=== PATIENT | male | born 1955 | race Caucasian/White ===

== ENCOUNTER 2016-06-19 13:42 | Inpatient (IN) | payer OTHER ==
[2016-06-19] MEDS ORDERED: ACETAMINOPHEN 325 MG TAB PO PRN (15:05)
[2016-06-19] MEDS ORDERED: ONDANSETRON 4 MG/2 ML VIAL IVP PRN (15:05)
[2016-06-19] MEDS ORDERED: ONDANSETRON DISINTEGRATING 4 MG TAB PO PRN (15:05)
[2016-06-19 16:23] LABS: % IMMATURE GRANULYOCYTES 0.2 % (0.0-1.1); ABSOLUTE IMMATURE GRANULOCYTES 0.01 10^3/uL (0.00-0.10); ADD DIFF? NO; ADD MORPH? NO; ADD SCAN? NO; ATYPICAL LYMPHOCYTE FLAG 30 (0-99); FRAGMENT RBC FLAG 0 (0-99); HEMATOCRIT 39.2 % (40.0-51.0); HEMOGLOBIN 13.6 g/dL (13.7-17.5); LEFT SHIFT FLG 0 (0-99); LIPEMIA HEMOLYSIS FLAG 90 (0-99); MEAN CELL HEMOGLOBIN 30.6 pg (27.9-34.1); MEAN CELL HEMOGLOBIN CONCENTR. 34.7 g/dL (32.4-36.7); MEAN CELL VOLUME 88.1 fL (81.5-99.8); MEAN PLATELET VOLUME 9.1 fL (8.7-11.7); PLATELET CLUMPS FLAG 0 (0-99); PLATELET COUNT 186 10^3/uL (150-400); RED BLOOD CELL COUNT 4.45 10^6/uL (4.40-6.38); RED CELL DISTRIBUTION WIDTH 13.6 % (11.5-15.2)
[2016-06-19 16:37] LABS: ANION GAP 8 mEq/L (8-16); C-REACTIVE PROTEIN < 5.0 mg/L (<10.0); CALCIUM 9.1 mg/dL (8.5-10.4); CARBON DIOXIDE 22 mEq/l (22-31); CHLORIDE 107 mEq/L (97-110); CREATININE 1.2 mg/dL (0.7-1.3); GLOMERULAR FILTRATION RATE > 60; GLUCOSE 77 mg/dL (70-100); POTASSIUM 3.8 mEq/L (3.5-5.2); SODIUM 137 mEq/L (134-144)
[2016-06-19 16:47] LABS: CREATINE KINASE-MB FRACTION 1.02 ng/mL (0-3.19); TROPONIN I < 0.012 ng/mL (0-0.034)
[2016-06-19 18:55] LABS: SEDIMENTATION RATE 6 MM/HR (0-20)
--- NOTE | 2016-06-19 21:03 | ECHO ---
[id number] + + [address] : : [place] [address] : : [phone] + + Adult Echocardiographic Report + ----+ :Name: DANISH MONTIELrivera Date: 06/19/2016 04:03 PM : : Hospital Admission Number: [id number] Location: 222: :: 1955 Gender: Male : :Age: 60 yrs Race: WH : :Reason For Study: Unstable angina/R/O WMA/pericardial : :effusion/Eval AVR : + ----+ MMode/2D Measurements \T\ Calculations IVSd: 0.65 cm LVIDd: 4.9 cm FS: 32.5 % Ao root diam: LVPWd: 0.80 cm LVIDs: 3.3 cm EDV(Teich): 4.2 cm 110.7 ml LA dimension: ESV(Teich): 4.1 cm 43.5 ml EF(Teich): 60.7 % LVLd ap4: 8.4 cm SV(MOD-sp4): EDV(MOD-sp4): 46.0 ml 74.0 ml LVLs ap4: 7.1 cm ESV(MOD-sp4): 28.0 ml EF(MOD-sp4): 62.2 % Normal Measurement Values: + + :LVIDd (3.5-5.7cm) IVSd (0.6-1.1cm) LVPWd (0.6-1.1cm) Aortic Root (2.0-3.7cm)Left Atrium (1.5-4.0cm): :LV Vol(d) (76-115ml) LV Vol(s) (29-48ml) Ejec Fraction (50-65%)PV Rui (0.6- 1.2m/s) TV Rui (0.4-1.0m/s) : :MV E Rui (0.8-1.0m/s)MV A Rui (0.3-1.0m/s)LVOT Rui (0.7-1.2m/s) Asc Ao Rui ( 0.9-1.8m/s) : + + Doppler Measurements \T\ Calculations MV E max rui: 117.5 cm/sec Ao mean P.1 mmHg MV A max rui: 56.8 cm/sec Ao V2 mean: 142.1 cm/sec MV E/A: 2.1 Ao V2 VTI: 47.5 cm Left Ventricle The left ventricle is normal in size. There is normal left ventricular wall thickness. Left ventricular systolic function is normal. Ejection Fraction = 60-65%. No regional wall motion abnormalities noted. Right Ventricle The right ventricle is normal in size and function. Atria The left atrial size is normal. Right atrial size is normal. The interatrial septum is intact with no evidence for an atrial septal defect. Mitral Valve The mitral valve is normal in structure and function. There is no evidence of mitral valve prolapse. There is no mitral valve stenosis. There is mild to moderate mitral regurgitation. Tricuspid Valve Normal tricuspid valve. There is trace tricuspid regurgitation. Aortic Valve There is no aortic insufficiency. There is a bioprosthetic aortic valve. The gradient is normal for this prosthetic aortic valve. AV mean gradient is 9mmHG. Pulmonic Valve The pulmonic valve is normal in structure and function. Mild pulmonic valvular regurgitation. Great Vessels The aortic root is normal size. Mildly dilated ascending aorta. Pericardium/Pleural There is no pericardial effusion. There is no pleural effusion. Conclusion A complete two-dimensional transthoracic echocardiogram was performed (2D, M-mode, Doppler and color flow Doppler). Compared to the echo of 02/20/16, the amount of MR has increased. Left ventricular systolic function is normal. Ejection Fraction = 60-65%. There is mild to moderate mitral regurgitation. There is trace tricuspid regurgitation. There is a bioprosthetic aortic valve. The gradient is normal for this prosthetic aortic valve. AV mean gradient is 9mmHG. Mild pulmonic valvular regurgitation. There is no pericardial effusion. Mildly dilated ascending aorta. There is no pleural effusion. Final Reading Physician: Alejandro Wallis electronically signed on 06/19/2016 09:01 PM Ordering Physician: Arnoldo Maguire Performed By: Sonya Sherman, [facility]
--- NOTE | 2016-06-19 21:24 | PDCARPN ---
Cardiology Progress Note Chief Complaint: Mr. Cordero is curently pain free. Troponin is normal. Echo demonstrates normal LVEF 60-65%, no wma. No pericardial effusion. Bioprosthetic aortic valve function is normal with normal gradient. Assessment/Plan: Assessment: 1. New onset chest pain 2. Hx of 3 vessel CABG 3. Hx of ostial RCA stent fracture 4. Hx of post op pericardial effusion and cardiac tamponade Plan: 1. NPO after midnight 2. LHC tomorrow morning. 06/19/16 21:22 Objective: Vital Signs (8 Hrs) Temp Pulse Resp BP Pulse Ox 06/19/16 20:00 36.4 C 50 L 19 121/72 H 97 06/19/16 14:45 36.5 C 73 16 127/83 H 98 Intake/Output (24 Hrs) 06/18/16 06/19/16 06/20/16 05:59 05:59 05:59 Intake Total 0 Balance 0 Intake: Oral (ml) 0 Other: Weight 95.5 kg Number of Voids Toilet 1 Result Diagrams: 06/19/16 16:00 06/19/16 16:00 Cardiac Labs: Cardiac Lab Results (72 Hrs) 06/19/16 16:00 CK-MB (CK-2) Fraction 1.02 Troponin I < 0.012 - Physical Exam Constitutional: WDWN, no apparent distress Cardiovascular: regular rate and rhythm, no murmurs, no rubs, no gallops Respiratory: clear to auscultate bilat Gastrointestinal: normoactive bowel sounds Skin: no rashes Musculoskeletal: no muscular tenderness Neurologic: AAOx3, CN II-XII grossly intact Psychiatric: cooperative, interactive ICD10 Worksheet Patient Problems: Problems Problem Status Onset Hepatitis Acute History of open heart surgery Acute Influenza A Acute Pericardial effusion without cardiac tamponade Acute Pneumonia Acute Postpericardiotomy syndrome Acute S/P AVR Acute S/P CABG x 3 Acute S/P pericardial surgery Acute 01/24/16 Syncope Acute Coronary artery disease Chronic Fatty liver Chronic Hyperlipidemia Chronic Obesity (BMI 30.0-34.9) Chronic
[2016-06-19] MEDS: ASPIRIN 81 MG CHEWABLE TAB PO SCH (22:27)
[2016-06-19] MEDS: COLCHICINE 0.6 MG CAP/TAB PO SCH (22:27)
[2016-06-19] MEDS ORDERED: ROSUVASTATIN CALCIUM 20 MG TAB PO SCH (22:30)
[2016-06-20] MEDS ORDERED: diphenhydrAMINE 25 MG CAP PO ONE ×2 (07:00→10:01)
[2016-06-20] MEDS ORDERED: DIAZEPAM 5 MG TAB PO ONE (07:00)
[2016-06-20] MEDS ORDERED: TEMAZEPAM 15 MG CAP PO PRN (07:00)
[2016-06-20] MEDS ORDERED: ACETAMINOPHEN 325 MG TAB PO PRN (07:00)
[2016-06-20] MEDS ORDERED: NITROGLYCERIN 0.4 MG BTL SL PRN (07:00)
[2016-06-20] MEDS ORDERED: ASPIRIN EC 325 MG TAB PO ONE ×2 (07:00→10:01)
[2016-06-20 07:22] LABS: CHOLESTEROL 129 mg/dL (140-220); CHOLESTEROL/HDL RATIO 3.23 RATIO (1.00-4.97); HIGH DENSITY LIPOPROTEIN 40 mg/dL (40-65); LDL/HDL RATIO 1.38 RATIO (1.00-3.64); LOW DENSITY LIPOPROTEIN 55 mg/dL (80-100); NON-HIGH DENSITY LIPOPROTEIN 89 mg/dL (90-129); TRIGLYCERIDE 173 mg/dL (40-150); VERY LOW DENSITY LIPOPROTEINS 34 mg/dL (8-25)
--- NOTE | 2016-06-20 08:38 | SOAPPROG ---
[facility] Progress Note Assessment/Plan: Assessment: Cardiology ([place]) 1. Admit with progressive worsening of exertional chest discomfort radiating to right shoulder. 2. Known CAD with multiple RCA stenting procedures, RCA stent fracture and subsequent CABG x 3. 3. Bicuspid aortic valve s/p bioprosthetic AVR. Valve is functioning normally with normal gradients. 4. History of post-operative pericardial effusion s/p pericardial window. No recurrence. 5. Hyperlipidemia that is well-controlled. Plan: 1. Keep NPO. 2. [facility] scheduled for [address] Humphrey. Subjective: Continues to have chest discomfort exacerbating with casual walking. He has no further questions about his procedure today. Objective: Vital Signs Temp Pulse Resp BP Pulse Ox 36.6 C 66 18 106/64 94 06/20/16 04:00 06/20/16 04:00 06/20/16 04:00 06/20/16 04:00 06/20/16 04:00 Laboratory Results 06/19/16 16:00 06/19/16 16:00 06/19/16 06/20/16 06/21/16 05:59 05:59 05:59 Intake Total 200 Balance 200 - Time Spent With Patient Time Spent With Patient: 25 minutes spent coordinating care, physical exam and documentation. Physical Exam - Physical Exam General Appearance: WD/WN, alert, no apparent distress Respiratory: chest non-tender, lungs clear, normal breath sounds Cardiac/Chest: normal peripheral pulses, regular rate, rhythm Peripheral Pulses: 2+: dorsalis-pedis (R), dorsalis-pedis (L) Abdomen: normal bowel sounds, non-tender, soft Neuro/Psych: no motor/sensory deficits, alert, normal mood/affect, oriented x 3 ICD10 Worksheet Patient Problems: Problems Problem Status Onset Hepatitis Acute History of open heart surgery Acute Influenza A Acute Pericardial effusion without cardiac tamponade Acute Pneumonia Acute Postpericardiotomy syndrome Acute S/P AVR Acute S/P CABG x 3 Acute S/P pericardial surgery Acute 01/24/16 Syncope Acute Coronary artery disease Chronic Fatty liver Chronic Hyperlipidemia Chronic Obesity (BMI 30.0-34.9) Chronic
--- NOTE | 2016-06-20 08:57 | CPEKG ---
Heart Rate: 65 RR Interval: 923 P-R Interval: 188 QRSD Interval: 76 QT Interval: 428 QTC Interval: 445 P [place]: 57 QRS [place]: 11 T Wave [place]: 49 EKG Severity - NORMAL ECG - EKG Impression: SINUS RHYTHM Electronically Signed By: Pedro Laureano 21-Jun-2016 13:00:24
[2016-06-20] MEDS: ASPIRIN 81 MG CHEWABLE TAB PO SCH (09:45)
[2016-06-20] MEDS: COLCHICINE 0.6 MG CAP/TAB PO SCH (09:45)
[2016-06-20] MEDS ORDERED: FAMOTIDINE 20 MG TAB ONE (10:01)
[2016-06-20] MEDS ORDERED: DIAZEPAM 5 MG TAB ONE (10:01)
[2016-06-20] MEDS ORDERED: LIDOCAINE 1% 30 ML SDV ONE (12:40)
[2016-06-20] MEDS ORDERED: fentaNYL 100 MCG/2 ML INJ ONE ×2 (12:40→14:23)
[2016-06-20] MEDS ORDERED: IOPAMIDOL (ISOVUE 370) 100 ML BTL IV ONE ×2 (12:41→14:33)
[2016-06-20] MEDS ORDERED: MIDAZOLAM 2 MG/2 ML VIAL ONE ×2 (12:41→14:23)
[2016-06-20 16:56] VITALS: TEMP 97.5
--- NOTE | 2016-06-20 17:33 | PDDXCAT ---
Diagnostic Cath Note - . Date: 06/20/16 Drive Thru Order Taker: Kam Indication: other (CAD; h/o PCI; h/o CABG; recurrent chest pain) - Procedure Access: right groin Procedure: left heart catheterization, coronary angiography, left ventriculogram , vein graft injection, MARTELL injection - Materials Left Heart Cath size: 6F Left Heart Cath materials: standard multipack (JL4, JR4, pigtail), other ( Multipurpose A-1 and Right Coronary Bypass catheter) - Findings-Left Heart Catheterization LM: Normal. LAD: Mild irregularities proximal and mid-vessel. LCX: Mild irregularities. RCA: Stents present from ostium to mid-RCA and and in distal RCA at the crux. Diffuse disease in mid-RCA up to 70%. rSVG: SVG to PDA patent. Retrogradely fills the proximal RCA and the distal RCA including posterolateral branch. SVG to posterolateral branch atretic with reduced flow. MARTELL: MARTELL to LAD patent. LVEF: 60% Wall motion: Normal Complications: Nonr Estimated blood loss: <50ml Closure method: Angioseal Assessment: 1) Normal left ventricular systolic function 2) [place] vessel CAD as described above. 3) Patent MARTELL to LAD. 4) Patent SVG to PDA. 5) Atretic SVG to posterolateral branch. No clear source for recent symptoms identified. The posterolateral branch appears to be adequately supplied via retrograde flow from the grafted PDA as well as from the [place] RCA. Plan: Start anti-anginal therapy with [id number] mg BID; consider adding Ranexa if symptoms persist. Patient Problems: Problems Problem Status Onset Hepatitis Acute History of open heart surgery Acute Influenza A Acute Pericardial effusion without cardiac tamponade Acute Pneumonia Acute Postpericardiotomy syndrome Acute S/P AVR Acute S/P CABG x 3 Acute S/P pericardial surgery Acute 01/24/16 Syncope Acute Coronary artery disease Chronic Fatty liver Chronic Hyperlipidemia Chronic Obesity (BMI 30.0-34.9) Chronic
[2016-06-20 18:03] VITALS: RESP 18
--- NOTE | 2016-06-20 18:31 | GDS ---
[f rep st] DISCHARGE SUMMARY HOSPITAL COURSE: Please refer to Dr. Wallis's admission note. Briefly, the patient is a 60-year-old male with a history of coronary disease. He has a history of prior PCI procedures involving the pro ximal and distal RCA. At one point, this included a fractured proximal RCA stent with approximately 5 mm of the stent bent at an almost 90-degree angle and protruding proximally into the aorta. That was based on a catheterization procedure performed late last year. In addition, the patient had ao rtic valve disease and abnormal fractional flow reserve in the left anterior descending. In of last year he underwent open-heart surgery which consisted of bioprosthetic aortic valve replace ment, a MARTELL to LAD graft, and separate saphenous vein grafts to the posterior descending branch and posterolateral branch of the RCA. The patient had issues postoperatively including pericardial eff usion with tamponade necessitating a pericardial window. Ultimately, the patient recovered from his procedure and was doing well. However, over the past week or so he began to have recurrent dyspnea on exertion and chest discomfort that was concerning to him. He was evaluated at [facility] by Dr. Hudson Wallis and was sent to the hospital for admission with a plan [facility]. The patient had no ischemic changes on ECG and his troponin was negative. To day, I performed a cardiac catheterization demonstrating normal left ventricular systolic function. His LAD had only mild disease. The left internal mammary graft to the LAD was patent. His circumf emily had no significant disease. The RCA had stents visible in its ostial/proximal portion and in th e distal RCA at the crux. Angiography revealed at least a 50%-60% ostial stenosis. There was a seg ment of disease in the mid RCA up to 70%. The distal RCA stents were generally patent. The sapheno us vein graft to the posterior descending branch was widely patent and provided retrograde filling o f both the proximal portion of the [place] RCA as well as distally into the posterolateral branch. T he saphenous vein graft to the posterolateral branch was atretic with significantly reduced flow. B ased on review of the films, there was no obvious culprit for his recurrent symptoms. The posterior descending branch and posterolateral branch had been separately grafted because of concern over pot ential stenosis within the distal RCA stents. However, on injections of both the [place] RCA and the grafted PDA, there did not appear to be a high-grade stenosis involving the stented segment of the distal RCA and the origin of the PDA which could potentially compromise retrograde flow to the poste rolateral branch. I had a phone discussion with Dr. Wallis. The decision was made to start antiangin al therapy in the form of low-dose metoprolol. The patient already has moderate bradycardia and the refore will be started on metoprolol tartrate 12.5 mg twice daily. RECOMMENDATIONS AND DISPOSITION: The patient is discharged in stable condition. He will continue h is aspirin, Crestor, and fenofibrate. Metoprolol will be added as described above. He has followup with Dr. Wallis on July 01. DISCHARGE DIAGNOSES: 1. Coronary artery disease. 2. History of prior PCIs. 3. History of prior CABG. 4. Recurrent chest discomfort. /[id number]/MODL
[2016-06-20 19:16] VITALS: BP 118/80; PULSE 65; O2SAT 97
[2016-06-20] MEDS ORDERED: METOPROLOL TARTRATE 25 MG TAB PO SCH (21:00)
[2016-06-20] MEDS ORDERED: FENOFIBRATE 48 MG TAB PO SCH (21:00)
== END 2016-06-20 19:44 | disposition home or self-care (01) | DRG 204 ==
LOC: F2W 14:27
PROVIDERS: ADMIT Internal Medicine Cardiovascular Disease; ATTEND Internal Medicine Cardiovascular Disease
PROC: 4A023N7 Measurement of Cardiac Sampling and Pressure, Left Heart, Percutaneous Approach (ICD-10-PCS; principal; 2016-06-20)
PROC: B2151ZZ Fluoroscopy of Left Heart using Low Osmolar Contrast (ICD-10-PCS; principal; 2016-06-20)
PROC: B2111ZZ Fluoroscopy of Multiple Coronary Arteries using Low Osmolar Contrast (ICD-10-PCS; principal; 2016-06-20)
PROC: B2131ZZ Fluoroscopy of Multiple Coronary Artery Bypass Grafts using Low Osmolar Contrast (ICD-10-PCS; principal; 2016-06-20)
PROC: B2181ZZ Fluoroscopy of Left Internal Mammary Bypass Graft using Low Osmolar Contrast (ICD-10-PCS; principal; 2016-06-20)
DX: R06.02 Shortness of breath (principal); R07.9 Chest pain, unspecified; I25.10 Atherosclerotic heart disease of native coronary artery without angina pectoris; E78.5 Hyperlipidemia, unspecified; Z95.5 Presence of coronary angioplasty implant and graft; Z95.1 Presence of aortocoronary bypass graft; Z95.2 Presence of prosthetic heart valve
CPT/HCPCS: C1760; C1769; J1644; J2250; J3010; Q9967

== ENCOUNTER 2016-11-12 14:54 | Observation (INO) | payer OTHER ==
--- NOTE | 2016-11-12 15:04 | CPEKG ---
Heart Rate: 47 RR Interval: 1277 P-R Interval: 184 QRSD Interval: 86 QT Interval: 476 QTC Interval: 421 P [place]: 39 QRS [place]: -8 T Wave [place]: 34 EKG Severity - OTHERWISE NORMAL ECG - EKG Impression: SINUS BRADYCARDIA Electronically Signed By: Oswald Reid 12-Nov-2016 15:10:43
[2016-11-12 15:22] LABS: % IMMATURE GRANULYOCYTES 0.2 % (0.0-1.1); ABSOLUTE IMMATURE GRANULOCYTES 0.01 10^3/uL (0.00-0.10); ADD DIFF? NO; ADD MORPH? NO; ADD SCAN? NO; ATYPICAL LYMPHOCYTE FLAG 10 (0-99); FRAGMENT RBC FLAG 0 (0-99); HEMATOCRIT 41.4 % (40.0-51.0); HEMOGLOBIN 14.3 g/dL (13.7-17.5); LEFT SHIFT FLG 0 (0-99); LIPEMIA HEMOLYSIS FLAG 90 (0-99); MEAN CELL HEMOGLOBIN 31.6 pg (27.9-34.1); MEAN CELL HEMOGLOBIN CONCENTR. 34.5 g/dL (32.4-36.7); MEAN CELL VOLUME 91.4 fL (81.5-99.8); MEAN PLATELET VOLUME 9.2 fL (8.7-11.7); PLATELET CLUMPS FLAG 0 (0-99); PLATELET COUNT 165 10^3/uL (150-400); RED BLOOD CELL COUNT 4.53 10^6/uL (4.40-6.38); RED CELL DISTRIBUTION WIDTH 12.7 % (11.5-15.2)
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
[2016-11-12 15:32] LABS: INR 1.04 (0.83-1.16); PROTIME(PATIENT) 13.5 SEC (12.0-15.0)
[2016-11-12 15:33] LABS: APTT 26.5 SEC (23.0-38.0)
[2016-11-12 15:41] LABS: CARBON DIOXIDE 23 mEq/l (22-31); CHLORIDE 104 mEq/L (97-110); POTASSIUM 4.2 mEq/L (3.5-5.2); SODIUM 139 mEq/L (134-144)
[2016-11-12 15:42] LABS: ALANINE AMINOTRANSFERASE 38 IU/L (21-72); ALBUMIN 4.3 g/dL (3.5-5.0); ALKALINE PHOSPHATASE 56 IU/L (38-126); ANION GAP 12 mEq/L (8-16); ASPARTATE AMINOTRANSFERASE 32 IU/L (17-59); BILIRUBIN,TOTAL 0.8 mg/dL (0.1-1.4); BILIRUBIN-CONJUGATED 0.2 mg/dL (0.0-0.5); BILIRUBIN-UNCONJUGATED 0.6 mg/dL (0.0-1.1); CALCIUM 9.4 mg/dL (8.5-10.4); CREATININE 1.4 mg/dL (0.7-1.3); GLOMERULAR FILTRATION RATE 51; GLUCOSE 82 mg/dL (70-100); TOTAL PROTEIN 7.4 g/dL (6.3-8.2)
[2016-11-12 15:50] LABS: TROPONIN I < 0.012 ng/mL (0.000-0.034)
[2016-11-12] MEDS ORDERED: ACETAMINOPHEN 325 MG TAB PO PRN (17:58)
[2016-11-12] MEDS ORDERED: ONDANSETRON DISINTEGRATING 4 MG TAB PO PRN (17:58)
[2016-11-12] MEDS ORDERED: ONDANSETRON 4 MG/2 ML VIAL IVP PRN (17:58)
[2016-11-12] MEDS ORDERED: NS 1,000 ML IV SCH (18:00)
[2016-11-12] MEDS ORDERED: IOPAMIDOL (ISOVUE 370) 100 ML BTL IV ONE (18:40)
--- NOTE | 2016-11-12 19:13 | GHP ---
[f rep st] HISTORY AND PHYSICAL DATE OF ADMISSION: 11/12/2016 The patient is a pleasant 61-year-old gentleman, with a history of coronary artery disease, 3-vessel CABG in January 2016, and he had some right coronary artery stents prior to that. His postoperati ve course was complicated by an admission for pericardial effusion, heart failure symptoms, and a cabrera bsequent admission for influenza. The patient has had a chest pain syndrome that has gone on for a number months, really starting in a bout May or June. He was admitted here in June, and he had an angiogram at that time that showe d no flow limiting stenosis and patent grafts, other than an atretic SVG to posterolateral branch. His [place] coronary vessels showed a mid RCA lesion about 70%. He had a stress test last week that showed [address] depressions during exercise that resolved with rest. His chest pain is somewhat constant in nature and may be pleuritic. He has not had cough or sputum. He has no family history or personal history of VTE. He has not had fever or chills or breathing complications. He has not had trauma to his chest. He is somewhat active. He does not feel any kn ocking in his chest or instability. He has had no trauma. He takes an aspirin, but has no melena o r bright red blood per rectum, and no GI upset symptoms. He drinks minimal alcohol. Does not smoke cigarettes. He used to chew tobacco but he has quit. REVIEW OF SYSTEMS: A complete 10-point review of systems conducted, and negative except as noted in the HPI. PAST MEDICAL HISTORY: 1. Coronary artery disease. 2. History of influenza. 3. Chest pain syndrome. 4. Hyperlipidemia. 5. In the past, obesity. He is pretty thin when I see him. He has also had aortic valve replacement with a bovine pericardial prosthesis. ALLERGIES: Levofloxacin. HOME MEDICATIONS: Amlodipine 5, aspirin 325, fenofibrate, metoprolol and rosuvastatin. SOCIAL HISTORY: He works for the [employer]. He used to use tobacco. Drinks minimal alcohol. FAMILY HISTORY: Reviewed and unremarkable. Negative for VTE. PHYSICAL EXAMINATION: VITAL SIGNS: Temp 37.5, blood pressure 118/71, pulse 50, breathing 18 times a minute, 98% on room air. GENERAL: No acute distress. Sclerae anicteric. Oropharynx clear. Muc ous membranes are moist. NECK: Supple without lymphadenopathy or JVD. LUNGS: Clear to auscultati on bilaterally. HEART: S1, S2 with systolic murmur heard best at the left upper sternal border. A BDOMEN: Soft, nontender, nondistended. LOWER EXTREMITIES: Without edema. Calves are nontender. SKIN: Without rash. NEUROLOGIC: Nonfocal. LABORATORY: CBC normal. Coags normal. D-dimer 0.038. Sodium 139, potassium 4.2, chloride 104, bi carb 23, BUN 24, creatinine 1.4. This is greater than his baseline of about 1. LFTs normal. BNP is elevated at 397. Troponin is less than 0.012. Lipase 111. Chest x-ray, interpreted by me, shows no acute cardiopulmonary disease. EKG, interpreted by me, shows sinus rhythm at 47, with normal axis and intervals. No ST or T-wave c hanges. I have discussed the case with Dr. Alejandro Wallis. ASSESSMENT AND PLAN: A 61-year-old gentleman with post coronary artery bypass grafting chest pain s yndrome. 1. Post coronary artery bypass grafting chest pain syndrome. This may be musculoskeletal, may be s ternal as it was reproducible on exam. I think he needs to be ruled out for pulmonary embolism, so I have ordered a CT angiogram. Will cycle his troponins. Cardiology will see him in the morning. I have not reordered echo, because I think this is not consistent with a pericardial effusion or oth er such symptoms. 2. Elevated creatinine. He is clinically dry. Will give him a liter of fluids. 3. Prophylaxis. Pharmacologic prophylaxis indicated if in the hospital longer than [address] arted him on sequential compression devices for now. 4. Disposition. Observation status. /[id number]/MODL
[2016-11-12] MEDS ORDERED: ROSUVASTATIN CALCIUM 20 MG TAB PO SCH (21:00)
[2016-11-12] MEDS ORDERED: FENOFIBRATE 48 MG TAB PO SCH (21:00)
[2016-11-12] MEDS: METOPROLOL TARTRATE 25 MG TAB PO SCH (21:13)
[2016-11-13 04:55] LABS: ANION GAP 9 mEq/L (8-16); CALCIUM 8.6 mg/dL (8.5-10.4); CARBON DIOXIDE 24 mEq/l (22-31); CHLORIDE 106 mEq/L (97-110); CREATININE 1.4 mg/dL (0.7-1.3); GLOMERULAR FILTRATION RATE 51; GLUCOSE 74 mg/dL (70-100); POTASSIUM 4.3 mEq/L (3.5-5.2); SODIUM 139 mEq/L (134-144)
[2016-11-13 05:53] VITALS: TEMP 98.1
[2016-11-13 07:52] VITALS: BP 107/68; PULSE 58; RESP 15; O2SAT 94
[2016-11-13] MEDS: METOPROLOL TARTRATE 25 MG TAB PO SCH (08:39)
[2016-11-13] MEDS ORDERED: amLODIPine BESYLATE 5 MG TAB PO SCH (09:00)
[2016-11-13] MEDS ORDERED: ASPIRIN 325 MG TAB PO SCH (09:00)
--- NOTE | 2016-11-13 09:16 | CPEKG ---
Heart Rate: 59 RR Interval: 1017 P-R Interval: 188 QRSD Interval: 88 QT Interval: 432 QTC Interval: 428 P [place]: 71 QRS [place]: 21 T Wave [place]: 65 EKG Severity - NORMAL ECG - EKG Impression: SINUS RHYTHM EKG Impression: COMPARED WITH 12 NOV 2016, HR FASTER, AXIS HAS SHIFTED SLIGHTLY Electronically Signed By: Shannan Fierro 13-Nov-2016 19:33:52
--- NOTE | 2016-11-13 11:44 | PDCARPN ---
Cardiology Progress Note Chief Complaint: Pt admitted with chest pain. Troponin neg x 3. D Dimer normal. CT of chest without PE or aortic dissection. Tele demonstrates NSR with brief, asymptomatic run of SVT at approx 120 bpm. He is feeling well this am. No complaints. Chest pain to palpitation to lower left side of midline incision. Note hypotension today with SBP in the 90's. Assessment/Plan: Assessment: 1. Chest pain 2. Pleuritic chest pain 3. Hx of CAD sp CABG Plan: 1. Discontinue Amlodipine 2. Arrange for Zio patch, My office will call and make arrangements this week 3. No other change in medications 4. Follow up after Zio patch 11/13/16 11:43 11/13/16 12:41 Reviewed/Discussed With: hospitalist Objective: Vital Signs (8 Hrs) Temp Pulse Resp BP Pulse Ox 11/13/16 07:51 36.7 C 58 L 15 107/68 94 11/13/16 04:00 36.7 C 57 L 13 96/54 L 92 Intake/Output (24 Hrs) 11/12/16 11/13/16 11/14/16 05:59 05:59 05:59 Intake Total 1318 Balance 1318 Intake: Oral (ml) 320 IV Infused (ml) 998 Ns 1,000 ml @ 125 mls/hr 998 IV CONT YESSY Rx#: [id number] Other: Weight 101.605 kg Intake Quantity Yes Sufficient Output Comment Urinal no void since arriving Result Diagrams: 11/12/16 Unknown 11/13/16 03:32 Cardiac Labs: Cardiac Lab Results (72 Hrs) 11/13/16 11/12/16 11/12/16 03:36 Unknown 21:13 Troponin I < 0.012 < 0.012 < 0.012 ICD10 Worksheet Patient Problems: Problems Problem Status Onset CAD (coronary artery disease) Acute Chest pain Acute Hepatitis Acute History of open heart surgery Acute Influenza A Acute Pericardial effusion without cardiac tamponade Acute Pneumonia Acute Postpericardiotomy syndrome Acute S/P AVR Acute S/P CABG x 3 Acute S/P pericardial surgery Acute 01/24/16 Syncope Acute Coronary artery disease Chronic Fatty liver Chronic Hyperlipidemia Chronic Obesity (BMI 30.0-34.9) Chronic
--- NOTE | 2016-11-13 18:28 | GDS ---
[f rep st] DISCHARGE SUMMARY DISCHARGE DIAGNOSES: 1. Chest pain, probably not from coronary disease. 2. Recent coronary artery bypass graft. HISTORY: This is a 61-year-old male with a history of CABG last fall, presenting with intermittent c hest pain, which has been worsening over the last several weeks. HOSPITAL COURSE: Patient admitted and had a CTA, which was negative. His troponins were negative. Cardiology has seen the patient and did not feel angiogram would be of any yield, as he most likely d oes not coronary disease. His chest pain is reproducible and is possibly due to poorly healing scott otomy. He is going to be discharged home with close followup with Cardiology. /[id number]/MODL
== END 2016-11-13 13:35 | disposition home or self-care (01) ==
LOC: EDUNIT# → F2W 17:04
PROVIDERS: ADMIT Internal Medicine; ATTEND Internal Medicine
DX: R07.9 Chest pain, unspecified (principal); I25.10 Atherosclerotic heart disease of native coronary artery without angina pectoris; R79.89 Other specified abnormal findings of blood chemistry; E78.5 Hyperlipidemia, unspecified; Z95.5 Presence of coronary angioplasty implant and graft; Z95.3 Presence of xenogenic heart valve; Z98.890 Other specified postprocedural states; Z95.1 Presence of aortocoronary bypass graft
CPT/HCPCS: 71010; 71275; 93005; 99285; G0378; Q9967

== ENCOUNTER 2016-12-23 15:26 | Emergency (ER) | payer OTHER ==
--- NOTE | 2016-12-23 16:37 | EDPHY ---
H & P Time Seen by Provider: 12/23/16 16:34 HPI/ROS: CHIEF COMPLAINT: Epigastric abdominal pain HISTORY OF PRESENT ILLNESS: Patient felt well last night and woke up this morning feeling well at 7:00 a.m.. Around 8:00 a.m. he started having epigastric pain which feels like "bad gas" but was not helped by Tums or Mylanta. He went to [facility] and had an EKG and his case was discussed with his hydraulic controls technician Dr. Wallis, who felt like it was likely not cardiac and asked him to go to the emergency department. Patient present since with epigastric pain which does not radiate. It is mild now and was much worse earlier. Not affected by eating or drinking. Nausea but no vomiting or diarrhea. He does not feel bloated or distended. REVIEW OF SYSTEMS: Eye: no change in vision ENT: no sore throat Cardiac: no chest pain or syncope Pulmonary: no cough or SOB Abdomen: HPI, no melena or red blood per rectum. Musculoskeletal: no back pain, no recent injury or trauma. Skin: no rash Neuro: no headache Constitutional: no fever : no urinary symptoms A comprehensive 10 point review of systems is otherwise negative aside from elements mentioned in the history of present illness. PAST MEDICAL HISTORY: History and physical dated 11/12/2016 personally reviewed includes coronary artery disease, hyperlipidemia, 3 vessel bypass surgery in January 2016. Aortic valve replacement with bovine prosthesis. Appendectomy and subsequent bowel obstruction surgery, had severe bloating with SBO. Social history: Minimal alcohol, nonsmoker. General Appearance: Alert and conversant, cooperative. Looks comfortable. Eyes: No scleral icterus. ENT, Mouth: Normal mucous membranes. Respiratory: Normal respiratory effort, breath sounds equal, lungs are clear to auscultation. Cardiovascular: Regular rate and rhythm. 3/6 systolic murmur. Gastrointestinal: Abdomen is soft and non tender. Negative Plascencia sign. No rebound or guarding. Not distended. Normal bowel sounds. Neurological: Alert and oriented x3. Normally conversant. Face symmetric, normal movement and sensation in all extremities. Skin: Warm and dry, no rashes. Musculoskeletal: No peripheral edema and no joint swelling. Psychiatric: Not agitated. Emergency Department course/MDM: EKG reviewed is normal. Much more likely to be gastrointestinal. Plan for LFTs and lipase and ultrasound. GI cocktail, IV protonix. 1726: Negative RUQ ultrasound,Tomy. No gallstones. 1744: Discussed in detail with Getachew. Also reviewed the patient's visit from February 2015 when he had similar symptoms, similar lab values, negative HIDA scan and negative CT. Patient would prefer not to be admitted and does not want to undergo further testing including HIDA etc tonight. Dr. Chilel recommends gastroenterology follow-up this week with workup including possibly outpatient MRCP. He took the patient's phone number and will call him tomorrow to arrange follow- up. Patient says his symptoms are tolerable and would prefer not to have any further treatment tonight and to go home and follow up as recommended by gastroenterology. I think it is unlikely this represents acute coronary syndrome or any other cardiac or pulmonary problem or vascular problem. Smoking Status: Never smoked Constitutional: Initial Vital Signs Temperature (C) 37.0 C 12/23/16 15:49 Heart Rate 60 12/23/16 15:49 Respiratory Rate 16 12/23/16 15:49 Blood Pressure 134/73 H 12/23/16 15:49 O2 Sat (%) 96 12/23/16 15:49 O2 Delivery Mode Room Air Allergies/Adverse Reactions: levofloxacin [From Levaquin] Allergy (Unknown, Verified 12/23/16 15:48) Home Medications: Medication Instructions Recorded Fenofibrate,Micronized [Lofibra] 67 mg PO HS 01/23/16 Rosuvastatin Calcium [Crestor 20mg 20 mg PO HS 01/23/16 (*)] Aspirin [Aspirin 325 mg (*)] 325 mg PO DAILY 11/12/16 Metoprolol Tartrate [Lopressor 25 25 mg PO BID 11/12/16 mg (*)] Medical Decision Making - Diagnostics EKG Interpretation: 12-lead EKG interpreted by me; official reading is in trace master. My interpretation is sinus rhythm rate 58 with no ischemic changes. Differential Diagnosis: Differential considered including but not limited to cholangitis, bowel obstruction, cholecystitis, pancreatitis, coronary syndrome or pulmonary embolism, aortic dissection, perforated ulcer. - Data Points Laboratory Results: Laboratory Results 12/23/16 16:50 12/23/16 16:50 Medications Given: Discontinued Medications Al Hydroxide/Mg Hydroxide (Maalox Susp) 30 ml PO ONCE ONE Stop: 12/23/16 16:55 Last Admin: 12/23/16 17:16 Dose: 30 ml Hyoscyamine Sulfate (Levsin, Hyomax-Sl) 0.25 mg PO ONCE ONE Stop: 12/23/16 16:55 Last Admin: 12/23/16 17:16 Dose: 0.25 mg Pantoprazole Sodium 40 mg/ (Sodium Chloride) 100 mls @ 200 mls/hr IV EDNOW ONE Stop: 12/23/16 18:23 Last Admin: 12/23/16 18:02 Dose: 100 mls Lidocaine (Lidocaine 2% Viscous) 15 ml PO ONCE ONE Stop: 12/23/16 16:55 Last Admin: 12/23/16 17:16 Dose: 15 ml Departure - Departure Disposition: Home, Routine, Self-Care Clinical Impression: Abdominal pain Condition: Good Instructions: Abdominal Pain (ED) Additional Instructions: Gastroenterology will call you tomorrow to arrange follow-up this week. Referrals: Brian Gordon MD [Primary Care Provider] - As per Instructions Cori Chilel MD [Medical Doctor] - As per Instructions (Gastroenterology will call you tomorrow to arrange office follow-up in the next couple of days.)
--- NOTE | 2016-12-23 16:42 | CPEKG ---
Heart Rate: 58 RR Interval: 1034 P-R Interval: 200 QRSD Interval: 86 QT Interval: 440 QTC Interval: 433 P [place]: 44 QRS [place]: -5 T Wave [place]: 44 EKG Severity - NORMAL ECG - EKG Impression: SINUS RHYTHM Electronically Signed By: Chato Brand 23-Dec-2016 17:03:19
[2016-12-23] MEDS ORDERED: MAG HYDROX/AL HYDROX/SIMETH 30 ML UDCUP PO ONE (16:54)
[2016-12-23] MEDS ORDERED: HYOSCYAMINE SULFATE 0.125 MG TAB PO ONE (16:54)
[2016-12-23] MEDS ORDERED: LIDOCAINE 2% VISCOUS 15 ML UDCUP PO ONE (16:54)
[2016-12-23 16:58] LABS: % IMMATURE GRANULYOCYTES 0.3 % (0.0-1.1); ABSOLUTE IMMATURE GRANULOCYTES 0.02 10^3/uL (0.00-0.10); ADD DIFF? NO; ADD MORPH? NO; ADD SCAN? NO; ATYPICAL LYMPHOCYTE FLAG 0 (0-99); FRAGMENT RBC FLAG 0 (0-99); HEMATOCRIT 41.9 % (40.0-51.0); HEMOGLOBIN 15.1 g/dL (13.7-17.5); LEFT SHIFT FLG 0 (0-99); LIPEMIA HEMOLYSIS FLAG 90 (0-99); MEAN CELL HEMOGLOBIN 32.4 pg (27.9-34.1); MEAN CELL VOLUME 89.9 fL (81.5-99.8); MEAN PLATELET VOLUME 9.2 fL (8.7-11.7); PLATELET CLUMPS FLAG 10 (0-99); PLATELET COUNT 165 10^3/uL (150-400); RED BLOOD CELL COUNT 4.66 10^6/uL (4.40-6.38); RED CELL DISTRIBUTION WIDTH 12.7 % (11.5-15.2)
[2016-12-23 17:13] LABS: ALANINE AMINOTRANSFERASE 156 IU/L (21-72); ALBUMIN 4.3 g/dL (3.5-5.0); ALKALINE PHOSPHATASE 66 IU/L (38-126); ANION GAP 9 mEq/L (8-16); ASPARTATE AMINOTRANSFERASE 277 IU/L (17-59); BILIRUBIN,TOTAL 1.9 mg/dL (0.1-1.4); BILIRUBIN-CONJUGATED 1.2 mg/dL (0.0-0.5); BILIRUBIN-UNCONJUGATED 0.7 mg/dL (0.0-1.1); CALCIUM 10.2 mg/dL (8.5-10.4); CARBON DIOXIDE 27 mEq/l (22-31); CHLORIDE 102 mEq/L (97-110); CREATININE 1.3 mg/dL (0.7-1.3); GLOMERULAR FILTRATION RATE 56; GLUCOSE 117 mg/dL (70-100); SODIUM 138 mEq/L (134-144); TOTAL PROTEIN 6.8 g/dL (6.3-8.2)
[2016-12-23 17:23] LABS: TROPONIN I < 0.012 ng/mL (0.000-0.034)
[2016-12-23] MEDS ORDERED: PANTOPRAZOLE SODIUM 40 MG in NS 100 ML IV ONE (17:54)
[2016-12-23] MEDS ORDERED: PANTOPRAZOLE SODIUM 40 MG VIAL ONE (17:56)
[2016-12-23 19:01] VITALS: BP 155/91; PULSE 78; RESP 18; TEMP 98.4; O2SAT 92
== END 2016-12-23 18:40 | disposition home or self-care (01) ==
DX: R10.9 Unspecified abdominal pain (principal); I25.10 Atherosclerotic heart disease of native coronary artery without angina pectoris; Z79.82 Long term (current) use of aspirin; Z90.49 Acquired absence of other specified parts of digestive tract
CPT/HCPCS: 96365

== ENCOUNTER → 2017-04-03 | Outpatient (CLI) | payer OTHER | LOC: BMCIMAGING 16:08 | PROVIDERS: ATTEND Internal Medicine | DX: M79.604 Pain in right leg (principal); I80.01 Phlebitis and thrombophlebitis of superficial vessels of right lower extremity ==

== ENCOUNTER 2017-08-26 22:47 | Observation (INO) | payer OTHER ==
--- NOTE | 2017-08-26 23:04 | CPEKG ---
Heart Rate: 60 RR Interval: 1000 P-R Interval: 200 QRSD Interval: 94 QT Interval: 432 QTC Interval: 432 P [place]: 8 QRS [place]: 10 T Wave [place]: 50 EKG Severity - NORMAL ECG - EKG Impression: SINUS RHYTHM Electronically Signed By: Amarjit Rodriguez 27-Aug-2017 16:35:36
[2017-08-26 23:15] LABS: PLATELET COUNT 168 10^3/uL (150-400)
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
[2017-08-26] MEDS: FAMOTIDINE 20 MG/NACL 50 ML IV ONE (23:52)
[2017-08-27] MEDS: FAMOTIDINE 20 MG/NACL 50 ML IV ONE ×2 (00:13→00:52)
[2017-08-27] MEDS ORDERED: ONDANSETRON 4 MG/2 ML VIAL IVP PRN (00:50)
[2017-08-27] MEDS ORDERED: ACETAMINOPHEN 325 MG TAB PO PRN (00:50)
[2017-08-27] MEDS ORDERED: ONDANSETRON DISINTEGRATING 4 MG TAB PO PRN (00:50)
--- NOTE | 2017-08-27 01:17 | PDGENHP ---
History and Physical - Chief Complaint Chest pain - History of Present Illness 62 yo M w/ hx of CAD s/p CABG and multiple stents presents with chest pain. Patient tells me he was siting at home when he noticed severe lower chest/upper abdominal pain. He denies any associated symptoms or radiation of the pain. The pain lasted about 2 hours so he decided to come to the ED. Onset of pain was around 9 PM. Patient states this pain is similar to his original anginal equivalent prior to his first stent. He initially had 3 stents put in and eventually had a CABG in 2016. Since his CABG he has experienced sternal pain intermittently, but he states this is quite different from that pain. At the time of my evaluation he is chest pain free and without complaint. History Information - Allergies/Home Medication List Allergies/Adverse Reactions: levofloxacin [From Levaquin] Allergy (Unknown, Verified 08/26/17 22:52) Home Medications: Fenofibrate,Micronized [Lofibra] 67 mg PO HS 01/23/16 [Last Taken 11/11/16] Rosuvastatin Calcium [Crestor 20mg (*)] 20 mg PO HS 01/23/16 [Last Taken ] Aspirin [Aspirin 325 mg (*)] 325 mg PO DAILY 11/12/16 [Last Taken 11/12/16] Metoprolol Tartrate [Lopressor 25 mg (*)] 25 mg PO BID 11/12/16 [Last Taken 07/24] I have personally reviewed and updated: family history, medical history - Past Medical History coronary artery disease, hyperlipidemia Additional medical history: Obesity, BMI > 30. BAV with moderate . Ectatic ascending aorta. Statin induced myalgias - Surgical History Reports: coronary bypass surgery, coronary stent Additional surgical history: Aortic valve replacement #25 CE magna bovine pericardial bioprosthesis and prophylactic resection and oversew of the left atrial appendage 01/12/16 - Family History Positive for: CAD - Social History Smoking Status: Never smoked Additional social history: . 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 Review of Systems Review of Systems: ROS: 10pt was reviewed & negative except for what was stated in HPI & below Physical Exam Physical Exam: Temp Pulse Resp BP Pulse Ox 36.4 C 55 L 16 137/85 H 97 08/26/17 22:52 08/26/17 23:53 08/26/17 23:53 08/26/17 23:53 08/26/17 23:53 Constitutional: no apparent distress, not in pain Eyes: PERRL, EOMI Ears, Nose, Mouth, Throat: moist mucous membranes, no oral mucosal ulcers Cardiovascular: regular rate and rhythym, systolic murmur Respiratory: no respiratory distress, clear to auscultation Gastrointestinal: normoactive bowel sounds, soft, non-tender abdomen Skin: warm, normal color Musculoskeletal: full muscle strength, no muscle tenderness Neurologic: AAOx3, CN II-XII Intact Psychiatric: interacting appropriately, not anxious Lab Data & Imaging Review 08/26/17 23:05 08/26/17 23:05 WBC 6.16 10^3/uL (3.80-9.50) 08/26/17 23:05 RBC 4.82 10^6/uL (4.40-6.38) 08/26/17 23:05 Hgb 15.1 g/dL (13.7-17.5) 08/26/17 23:05 Hct 43.2 % (40.0-51.0) 08/26/17 23:05 MCV 89.6 fL (81.5-99.8) 08/26/17 23:05 MCH 31.3 pg (27.9-34.1) 08/26/17 23:05 MCHC 35.0 g/dL (32.4-36.7) 08/26/17 23:05 RDW 12.5 % (11.5-15.2) 08/26/17 23:05 Plt Count 168 10^3/uL (150-400) 08/26/17 23:05 MPV 8.9 fL (8.7-11.7) 08/26/17 23:05 Neut % (Auto) 43.4 % (39.3-74.2) 08/26/17 23:05 Lymph % (Auto) 42.7 % (15.0-45.0) 08/26/17 23:05 [place] % (Auto) 11.2 % (4.5-13.0) 08/26/17 23:05 Eos % (Auto) 1.9 % (0.6-7.6) 08/26/17 23:05 Baso % (Auto) 0.6 % (0.3-1.7) 08/26/17 23:05 Nucleat RBC Rel Count 0.0 % (0.0-0.2) 08/26/17 23:05 Absolute Neuts (auto) 2.67 10^3/uL (1.70-6.50) 08/26/17 23:05 Absolute Lymphs (auto) 2.63 10^3/uL (1.00-3.00) 08/26/17 23:05 Absolute Monos (auto) 0.69 10^3/uL (0.30-0.80) 08/26/17 23:05 Absolute Eos (auto) 0.12 10^3/uL (0.03-0.40) 08/26/17 23:05 Absolute Basos (auto) 0.04 10^3/uL (0.02-0.10) 08/26/17 23:05 Absolute Nucleated RBC 0.00 10^3/uL (0-0.01) 08/26/17 23:05 Immature Gran % 0.2 % (0.0-1.1) 08/26/17 23:05 Immature Gran # 0.01 10^3/uL (0.00-0.10) 08/26/17 23:05 Sodium 139 mEq/L (135-145) 08/26/17 23:05 Potassium 3.6 mEq/L (3.3-5.0) 08/26/17 23:05 Chloride 102 mEq/L (97-110) 08/26/17 23:05 Carbon Dioxide 24 mEq/l (22-31) 08/26/17 23:05 Anion Gap 13 mEq/L (8-16) 08/26/17 23:05 BUN 22 mg/dL (7-23) 08/26/17 23:05 Creatinine 1.3 mg/dL (0.7-1.3) 08/26/17 23:05 Estimated GFR 56 08/26/17 23:05 Glucose 105 mg/dL (70-100) H 08/26/17 23:05 Calcium 9.8 mg/dL (8.5-10.4) 08/26/17 23:05 Total Bilirubin 0.8 mg/dL (0.1-1.4) 08/26/17 23:05 Conjugated Bilirubin 0.4 mg/dL (0.0-0.5) 08/26/17 23:05 Unconjugated Bilirubin 0.4 mg/dL (0.0-1.1) 08/26/17 23:05 AST 58 IU/L (17-59) 08/26/17 23:05 ALT 48 IU/L (21-72) 08/26/17 23:05 Alkaline Phosphatase 75 IU/L (38-126) 08/26/17 23:05 POC Troponin I 0.00 ng/mL (0.00-0.08) 08/26/17 23:12 NT-Pro-B Natriuret Pep 130 pg/mL (0-125) H 08/26/17 23:05 Total Protein 8.0 g/dL (6.3-8.2) 08/26/17 23:05 Albumin 4.8 g/dL (3.5-5.0) 08/26/17 23:05 Lipase 176 IU/L (23-300) 08/26/17 23:05 Imaging Review: Imaging Impressions Chest X-Ray 08/26/17 23:21 Impression: 1. Postoperative changes related to previous open heart surgery. 2. Slight decrease in inspiration when compared to the prior study. Allowing for this, no active cardiopulmonary disease otherwise noted. Visualized and Interpreted Chest x-ray results: Yes Chest X-Ray results: no infiltrate Visualized and Interpreted EKG results: Yes EKG Interpretation: Positive for: normal sinsus rhythm Assessment & Plan Assessment: 62 yo M w/ hx of CAD s/p CABG p/w chest pain. Plan: 1. Chest pain - Severe lower chest/epi-gastric pain with onset at rest. Most concerning in that patient feels this is very similar to his initial anginal presentation. Initial work-up negative (personally interpreted ECG - non- ischemic/NSR) and currently chest pain free. - Admit to PCU for observation - Monitor on telemetry, trend cardiac enzymes - Cardiology consult in the morning to determine next step noting complex history - Discussed case with Dr. Watts 2. Hx CAD - S/p multiple stents followed by CABG in 2016. - Continue home medications Diet - NPO pending work-up Code - Full Ppx - LMWH Dispo - Admit under observation status
[2017-08-27 05:27] LABS: PLATELET COUNT 148 10^3/uL (150-400)
[2017-08-27] MEDS ORDERED: ENOXAPARIN 40 MG/0.4 ML SYR SC SCH (09:00)
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
--- NOTE | 2017-08-27 13:53 | ECHO ---
[email or web address] [address] [address] Main: [phone] Fax: [email or web address] Echocardiogram Name: DEVORAH MONTIEL MR#: [id number] Study Date: 08/27/2017 Study Time: 10:39 AM Date of : 1955 Age: 62 year(s) Height: 182.9 cm (72 in.) Weight: 102.97 kg (227 lb.) BSA: 2.25 m2 Gender: Male Examination: Echo Indication: Chest Pain, AVR 2015 Image Quality: Contrast: Requested by: Pedro Tellez BP: 113 mmHg/70 mmHg Heart Rate: Rhythm: Indication: Chest Pain, AVR 2016 Procedure Staff Map Compiler: Tha Narayan RDCS Reading Physician: Jesse Mandel MD Requesting Provider: Conclusions: Normal size left ventricle. No LV hypertrophy. Normal global systolic LV function. EF is 64 %. No regional wall motion abnormality. Normal RV function. The mitral valve is normal in appearance and function. Trivial mitral valve regurgitation. No mitral stenosis is present. The aortic valve is a bioprosthesis. The prosthetic aortic valve is normal. The AV Mean PG is 14mmHg with a Max PG of 27 mmHg.. Trivial tricuspid valve regurgitation. No previous . Measurements: Chambers Valvular Assessment AV/MV Valvular Assessment TV/PV Normal Normal Normal Name Value Range Name Value Range Name Value Range Ao Amberly (MM): 2.4 cm (2.2 cm-3.7 AV Vmax: 2.55 m/s (1 m/s-1.7 PV Vmax: 1.09 m/s (0.6 m/s-0.9 cm) m/s) m/s) IVSd (2D): 0.9 cm (0.6 cm-1.1 AV maxP mmHg ( - ) PV PGmax: 5 mmHg ( - ) cm) AV meanP mmHg ( - ) LVDd (2D): 4.3 cm (4.2 cm-5.9 SLY (VTI): 1.3 cm ( - ) cm) MV E Vmax: 0.98 m/s ( - ) LVDs (2D): 2.8 cm (2.1 cm-4 MV A Vmax: 0.69 m/s ( - ) cm) MV E/A: 1.42 ( - ) LVPWd (2D): 1.0 cm (0.6 cm-1 cm) LVOTd 2.0 cm 2.0 cm mm Patient: DEVORAH MONTIEL Study Date: 08/27/2017 Page 1 of 2 10:39 AM LVEF (2D): 64 (>=54 %) Continued Measurements: Chambers Valvular Assessment AV/MV Name Value Name Value LADs Lon.6 cm MV E' Septal: 0.04 m/s LA Area: 14.0 cm2 MV E/E' Septal: 24.40 LA Volume: 44 ml MV E/E' Lateral: 25.70 LA Volume Index: 19.6 ml/m2 Findings: Left Ventricle: Normal size left ventricle. No LV hypertrophy. Normal global systolic LV function. EF is 64 %. No regional wall motion abnormality. Right Ventricle: Normal size right ventricle. Normal RV function. Left Atrium: The left atrium is normal in size. Right Atrium: The right atrium is normal in size. Mitral Valve: The mitral valve is normal in appearance and function. Trivial mitral valve regurgitation. No mitral stenosis is present. Aortic Valve: The aortic valve is a bioprosthesis. The prosthetic aortic valve is normal. The AV Mean PG is 14mmHg with a Max PG of 27 mmHg.. Tricuspid Valve: The tricuspid valve is normal in appearance and function. Trivial tricuspid valve regurgitation. Pulmonic Valve: The pulmonic valve is normal in appearance and function. Aorta: The aorta is normal. Pericardium: No pericardial effusion. (No Signature Object) Patient: DEVORAH MONTIEL Study Date: 08/27/2017 Page 2 of 2 10:39 AM [id number]
--- NOTE | 2017-08-27 15:07 | CPR ---
[f rep st] NONINVASIVE CARDIAC PROCEDURE REPORT DATE OF PROCEDURE: 08/27/2017 PROCEDURE: Nuclear treadmill stress test REQUESTING PHYSICIAN: Dr. Alonzo, hospitalist. REASON FOR TEST: Known coronary artery disease with coronary artery bypass surgery and chest pain. DESCRIPTION OF PROCEDURE: Resting EKG shows a regular sinus rhythm with a ventricular rate of 64. T here are no ischemic changes noted. Resting blood pressure is 116/64, oxygen saturation 98%. He is asymptomatic at this time. STRESS PORTION: He was exercised according to the Des protocol for a total of 8 minutes and 27 sec onds. He reached a MET level of 9.5. His peak blood pressure was 176/90, peak heart rate 143. He h ad no chest pain during testing. There were no significant EKG changes. Lexiscan was injected at pe ak exercise, followed by saline flush. He then walked for an additional minute circulating the medic ation. RECOVERY: He did spontaneously recover. Resting blood pressure 126/70. Resting heart rate 76. Rec overy period was 5 minutes. He remained pain free with no significant EKG changes. At this time, he currently is stable for nuclear imaging. /[id number]/MODL
--- NOTE | 2017-08-27 15:12 | ASMTCASEMG ---
Living Arrangements What is your living Answers: With Spouse arrangement? Who do you live with? Type Of Residence What kind of residence do Answers: House you live in? Discharge Plan Comments Coordination Status Comments Notes: Pt is a 62 y/o man admitted for chest pain w/ hx of CAD and CABG. Pt will most likely d/c without any needs when medically stable. No therapies ordered at this time. CM available for changes. Plan: Independent Date Signed: 08/27/2017 03:12 PM Electronically Signed By:SIMEON Cameron
[2017-08-27 15:42] VITALS: BP 124/67
== END 2017-08-27 17:33 | disposition home or self-care (01) ==
LOC: F2W 08-27 01:29
PROVIDERS: ADMIT Student in an Organized Health Care Education/Training Program; ATTEND Internal Medicine
DX: R07.9 Chest pain, unspecified (principal); R06.09 Other forms of dyspnea; I25.10 Atherosclerotic heart disease of native coronary artery without angina pectoris; E78.5 Hyperlipidemia, unspecified; E66.9 Obesity, unspecified; Z68.30 Body mass index [BMI] 30.0-30.9, adult; I10 Essential (primary) hypertension; Z79.82 Long term (current) use of aspirin; Z87.828 Personal history of other (healed) physical injury and trauma; Z95.1 Presence of aortocoronary bypass graft; Z95.3 Presence of xenogenic heart valve; Z95.5 Presence of coronary angioplasty implant and graft; Z98.890 Other specified postprocedural states
CPT/HCPCS: 71045; 78452; 93005; 93017; 93306; A9500; G0378; 84484-PO; J1650

== ENCOUNTER → 2018-06-10 | Outpatient (CLI) | payer OTHER ==
[~2018-06-10] MED LIST: IOPAMIDOL (ISOVUE-300) 100 ML BTL ONE
== END ==
LOC: FIMAGING 14:42
PROVIDERS: ATTEND Internal Medicine
DX: T18.108A Unspecified foreign body in esophagus causing other injury, initial encounter (principal); F17.220 Nicotine dependence, chewing tobacco, uncomplicated
CPT/HCPCS: Q9967